=== PATIENT | female | born 1995 | race Asian ===

== ENCOUNTER 2021-09-13 02:33 | Emergency (ER) | payer SELFPAY ==
[~2021-09-13] VITALS: Ht 165.1 cm; Wt 65.0 kg
[2021-09-13] MEDS ORDERED: ONDANSETRON 4MG ODT PO STA (03:11)
[2021-09-13 03:36] LABS: BASOPHILS % 0.4 % (0.0-2.0); EOSINOPHILS % 0.4 % (0.0-5.0); HEMATOCRIT. 39.4 % (36.0-48.0); HEMOGLOBIN. 12.9 g/dL (12.0-16.0); LYMPHOCYTES % 10.6 % (20.0-50.0); MEAN CORPUSCULAR HEMOGLOBIN 28.6 pg (28.0-32.0); MEAN CORPUSCULAR VOLUME 87.4 fL (81.0-99.0); MEAN PLATELET VOLUME 8.5 fl (7.4-10.4); MONOCYTES % 4.1 % (2.0-8.0); NEUTROPHILS % 84.5 % (40.0-76.0); PLATELET 214 x1000/uL (130-400); RED CELL DISTRIBUTION WIDTH 13.8 % (11.6-14.6)
[2021-09-13 03:42] LABS: CHLORIDE 109 mEq/L (98-107)
[2021-09-13] MEDS ORDERED: ONDA4TAB11 PO (03:52)
[2021-09-13 04:24] LABS: CLARITY URINE CLEAR (CLEAR); COLOR URINE YELLOW (YELLOW); KETONES URINE TRACE (NEGATIVE); LEUKOCYTE ESTERASE URINE NEGATIVE (NEGATIVE); NITRITE URINE NEGATIVE (NEGATIVE); OCCULT BLOOD URINE NEGATIVE (NEGATIVE); PROTEIN URINE TRACE (NEGATIVE); SPECIFIC GRAVITY URINE 1.031 (1.005-1.030)
[2021-09-13 04:39] VITALS: BP 113/59
== END 2021-09-13 04:40 | disposition home or self-care (01) ==
LOC: ER 02:33
DX: R11.2 Nausea with vomiting, unspecified (principal)
CPT/HCPCS: 36415; 80048; 81003; 81025; 83690; 85025; 99283; Q0162